=== PATIENT | female | born 1985 | race Caucasian/White ===

== ENCOUNTER 2018-10-10 03:40 | Inpatient (IN) | payer BC ==
[2018-10-10] MEDS ORDERED: Lactated Ringers 1000 ML Bag* 1,000 ML IV ONE ×2 (04:23→17:39)
--- NOTE | 2018-10-10 04:47 | HP ---
General Information - Reason for Visit Pt presents at 38-1/7 in early active labor, GBS + - General Information Maternal Age: 33 Grav: 2 Para: 1 SAB: 0 IEA: 0 Estimated Due Date: 10/23/18 Determined By: Date of Conception Gestational Age in Weeks/Days: 38-7 Maternal Blood Type and Rh: O Positive - Results this Serology/RPR Result: Non-Reactive Rubella Result: Immune HBsAg Result: Negative HIV Result: Negative GBS Culture Result: Positive Past Medical History Delivery History: Hx Complicated Vaginal Delivery - 20 second shoulder dystocia with delivery 8lb 1oz son Delivery History Comment: 10/08/2016 8lbs 1oz boy at [facility] [place] by Dominick Hale CNM As above delivery complicated by 20second shoulder dystocia. without any complications s/p delivery Pertinent Past Medical History: See Records Past Medical History Comment: Hx ulcers in the past Hx migraine Psoriasis Pertinent Past Surgical History: None Pertinent Family History: See Records Family History Comment: Mother: Aortic valve, arch replacement Sister: Single kidney, double uterus, DM Type I PGM: . Alzheimers PGF: Hx lymphoma. old age MGM: lung cancer MGF: Hx MS. old age - Antepartal Records Antepartal Records: Reviewed, Complicated by: - Hyperemesis gravidum first/second trimester. Well managed with antinausea medication. GBS +. PCN and Cephalosporin allergic. C&S done. Clinda resistant. Plan vanco Review of Systems Constitutional: Comfortable CV Complaint: No Respiratory: Shortness of Breath: No Gastrointestinal: No Nausea/Vomiting, Normal Bowel Movement Genitourinary: No Dysuria, No Bleeding, No Leaking Fluid Musculoskeletal: Contractions Neurological: No Headache, No Visual Changes Movement: Normal Exam Allergies/Adverse Reactions: Allergies Sulfa (Sulfonamide Antibiotics) Allergy (Severe, Verified 10/10/18 04:35) Hives amoxicillin Allergy (Verified 10/10/18 04:35) Rash Cephalosporins Allergy (Verified 10/10/18 04:35) See Comment psoriasis exacerbation Penicillins Allergy (Verified 10/10/18 04:35) Rash shellfish derived Allergy (Verified 10/10/18 04:35) GI Upset Vital Signs 10/10/18 04:38 Temperature 97.8 F Pulse Rate 96 Respiratory 18 Rate Blood Pressure 128/72 (mmHg) O2 Sat by Pulse 99 Oximetry - Measurements Height: 5 ft 6.5 in Weight: 228 lb Weight in lbs: 228.807284 Body Mass Index (BMI): 36.2 Pre- Weight: 183 lb Weight Gained This : 45 lbs and 0 ozs - Exam Breast: Breast Exam Deferred CVA: No CVA Tenderness Extremities: No Edema Heart: Normal Rhythm/Heart Sounds HEENT: No Significant Findings Lungs: Clear Bilaterally Rectal: Rectal Exam Deferred Reflexes: DTR 2+ Thyroid: No Thyromegaly - Abdominal Exam Abdomen Exam: Non-Tender, Fundal Height Consistent with Dates Targeted Exam Findings Estimated Weight: EFW by sono 09/29/2018 7lbs 8oz. By Glenna cruz 8- 8.5lbs Cervical Exam: 3cm, 4cm Effacement: 80% Station: -2 Presenting Part: Vertex - per RN Membrane Status: Intact Sterile Speculum Exam: Not done Bleeding/Discharge: None EFM Findings - External Monitor Findings Baseline Heart Rate: 145 External Monitor Findings: Accelerations Present, No Pattern of Variable or Late Decelerations, Variability Moderate, Baseline Stable External Monitor Findings Comment: No evidence of metabolic acidemia Contractions: Regular, Mild Contraction Frequency: q 3-5 Assessment/Plan - Assessment IUP at 38-1/7 in early active labor - Obstetrical Risk Factors Obstetrical Risk Factors: GBS Positive Risk Factors Comment: Hx of previous shoulder dystocia. Lengthy review of options given current EFW matches previous child including elective pLTCS and risk of possible repeat shoulder and associated risks (brachial plexus injury to with life long repercussions, broken bones, traumatic delivery for mom and infant, infant ). All questions answered. At this time pt and FOB accept potential risks associated with a repeat shoulder. If labor progress is as expected prefer to attempt a vaginal . If labor progress lags would like option to revisit pLTCS. - Plan Plan: Observe Plan Comment: P: Admit. Begin GBS prophylaxis. Plan MD in house for delivery given obstetrical history. - Date/Time of Admission Date of Admission: 10/10/18 Time of Admission: 04:20
[2018-10-10 04:52] LABS: ABS Basophils 0.1 10^3/ul (0-0.2); ABS Eosinophils 0.1 10^3/ul (0-0.6); ABS Lymphocytes 2.4 10^3/ul (1.0-4.8); ABS Monocytes 0.9 10^3/ul (0-0.8); ABS Neutrophils 10.8 10^3/ul (1.5-7.7); ABS Nucleated RBC 0 10^3/ul; Eosinophil % 0.5 %; Hematocrit 32 % (35-47); Hemoglobin 10.5 g/dl (12.0-16.0); Lymphocyte % 16.8 %; Mean Corpuscular HGB Conc 33 g/dl (31-36); Mean Corpuscular Hemoglobin 28 pg (27-31); Mean Corpuscular Volume 83 fL (80-97); Mean Platelet Volume 8.6 fL (7.4-10.4); Nucleated Red Blood Cells % 0.1; Platelet Count 212 10^3/ul (150-450); Red Blood Count 3.82 10^6/ul (4.00-5.40); Red Cell Distribution Width 14 % (10.5-15); White Blood Count 14.2 10^3/ul (3.5-10.8)
[2018-10-10] MEDS: Vancomycin(*) 1,000 MG in NS 0.9% 250 ML* 250 ML IVPB SCH ×2 (05:23→18:00)
--- NOTE | 2018-10-10 07:28 | PN ---
Progress Note - Progress Note Date of Service: 10/10/18 Note: S: Pt breathing through UCs although reports spacing about the same. O: BP 118/82 HR 110 T 99.2 RR 20 FHT: 140bpm. Moderate variability. +Accels. No decels. UCs q 2-4, mild-moderate VE: 4cm/70%/vtx -2, BBOW. Membranes swept A: IUP at 38-1/7 in early active labor No evidence of metabolic acidemia GBS+ P: Will continue to monitor. 1st dose of vancomycin completed. Report to Katie Ramirez CNM who will assume care at 0800
--- NOTE | 2018-10-10 09:38 | PN ---
Progress Note - Progress Note Date of Service: 10/10/18 SOAP: Subjective: [Patient coping well with contractions, ambulating and using yoga ball to try to get labor going. Would like to consider amniotomy as this helped get her previous labor moving. Feels contractions are somewhat stronger.] Objective: [VE 4cm/80%/-2 VSS, afebrile FHT 140 last doppler UCs approx Q 3-4 min] Assessment: [Early labor No evidence acidemia] Plan: [PARQ discussion of amniotomy, patients are in agreement. Fluid clear. Anticipate SVB. MD will be in-house due to hx of shoulder dystocia.]
--- NOTE | 2018-10-10 14:23 | PN ---
Progress Note - Progress Note Date of Service: 10/10/18 Note: S: Patient reports walking in hallways, on yoga ball, went in tub, had a short rest. Contractions initially stronger after amniotomy but now have spaced out. Would like to consider pitocin which she had with previous labor. O: VE deferred FHT 155 Ctx approx Q 2-5 Vss, afebrile A: Term in early/prodromal labor No evidence metabolic acidemia P: PARQ disc low-dose pitocin. Patients in agreement and would like to initiate. Monitor per protocol
[2018-10-10] MEDS ORDERED: Oxytocin in LR* 20 UNITS/1,000 ML BAG IVPB SCH ×2 (15:00→22:00)
--- NOTE | 2018-10-10 16:37 | PN ---
Progress Note - Progress Note Date of Service: 10/10/18 Note: S: Patient reports increasing strength of contractions, feeling them more in her back. Still leaking fluid. Small amount of bloody show. Was in tub with good relief. O: VE /-1 Pit @ 6 UCs q 2-5 min FHT 150 Cat 1 VSS, afebrile A: IUP in labor No evidence acidemia P: Continue to monitor contractions and titrate pitocin accordingly. Anticipate SVB
[2018-10-10] MEDS ORDERED: OBEPIDURAL* 250 ML EPIDURAL ONE (16:50)
[2018-10-10] MEDS ORDERED: fentaNYL* 50 MCG/ML 2 ML VIAL (100 MCG VIAL) ONE (17:01)
[2018-10-10] MEDS ORDERED: Sodium Citrate/Citric Acid* 15 ML UDC PO PRN (17:39)
[2018-10-10] MEDS ORDERED: Famotidine TAB* 20 MG PO PRN (17:39)
[2018-10-10] MEDS ORDERED: Phenylephrine IV* 40 MCG/ML 10 ML SYRINGE IV PUSH PRN ×2 (17:39)
[2018-10-10] MEDS ORDERED: Lactated Ringers 1000 ML Bag* 1,000 ML IV SCH ×2 (18:00→22:00)
[2018-10-10] MEDS ORDERED: OBEPIDURAL* 250 ML EPIDURAL SCH (18:00)
--- NOTE | 2018-10-10 19:14 | PN ---
Progress Note - Progress Note Date of Service: 10/10/18 Note: S: Patient has been very comfortable with epidural. Can feel ctx but not painful. Feeling more sensation/pressure in vaginal and rectal area. O: VE 8cm/90/-1 FHT 145 UCs q 2-5 min Pit @ 4 VSS, afebrile A: IUP in active labor No evidence acidemia P: Continue position changes, use peanut ball. Anticipate SVB
--- NOTE | 2018-10-10 21:26 | PN ---
Progress Note - Progress Note Date of Service: 10/10/18 Note: S: Patient feeling contractions more strongly despite epidural, but coping ok and using bolus button. O: VE 9cm/100/-1 Pit @ 8 UCs q 2-3 FHT 145 A: Possible malposition, OP? Active labor No signs acidemia P: continue use of peanut ball and position changes
[2018-10-10] MEDS ORDERED: Witch Hazel PAD* JAR TOPICAL PRN (21:59)
[2018-10-10] MEDS ORDERED: Glycerin ADULT SUPP PR PRN (21:59)
[2018-10-10] MEDS ORDERED: Dibucaine 1% 28.35 GM TUBE PR PRN (21:59)
--- NOTE | 2018-10-10 23:09 | PROCNOTE ---
[facility] OB: Delivery Note - Delivery A Date of : 10/10/18 Time of : 21:48 [place] Sex: Male Score 1 Minute: 9 Score 5 Minutes: 9 Gestational Age in Weeks and Days at Delivery: 38 Weeks and 1 Days Delivery Method: Spontaneous Vaginal Labor: Spontaneous Amniotic Fluid: Clear Estimated Blood Loss: 300 Anesthesia/Analgesia: CEI for Labor Delivered By: Gracy Ramirez - Nursery Level of Nursery: Regular/Bedside - Perineum Perineal Injury: 2nd Degree Perineal Repair: By Delivering Practioner - Events Delivery Events of Note: Pitocin During Labor, Full Course of Antibiotics - Additional Delivery Notes Additional Delivery Notes: Patient admitted in early labor. Amniotomy and pitocin lead slowly to active labor with steady progression to complete. Position changes to adjust position lead to sudden urge to push. LOL 20'57", pushed 9 min. Baby born OA to SADIE, shoulders following with strong maternal efforts. Baby placed on lower maternal abdomen due to short, thick cord. Spontaneous cry, HR>110. Cord doubly clamped and cut by FOB once pulsations ceased at approx 5 min. Placenta delivered Trung @ 2149 with gentle cord traction. Noted to have intact- appearing membrane, 3VC, slightly short cord. Fundus firm to massage and with pitocin infusing. Baby at breast to initiate and both stable. Baby name [email or web address].
[2018-10-11] MEDS: Ibuprofen TAB* 600 MG PO PRN ×4 (00:58→20:40)
[2018-10-11 06:41] LABS: ABS Basophils 0.1 10^3/ul (0-0.2); ABS Eosinophils 0.1 10^3/ul (0-0.6); ABS Lymphocytes 1.9 10^3/ul (1.0-4.8); ABS Monocytes 1.2 10^3/ul (0-0.8); ABS Nucleated RBC 0 10^3/ul; Eosinophil % 0.3 %; Hematocrit 28 % (35-47); Hemoglobin 9.2 g/dl (12.0-16.0); Mean Corpuscular HGB Conc 33 g/dl (31-36); Mean Corpuscular Hemoglobin 27 pg (27-31); Mean Corpuscular Volume 84 fL (80-97); Mean Platelet Volume 8.4 fL (7.4-10.4); Nucleated Red Blood Cells % 0; Platelet Count 196 10^3/ul (150-450); Red Blood Count 3.39 10^6/ul (4.00-5.40); Red Cell Distribution Width 14 % (10.5-15); White Blood Count 19.3 10^3/ul (3.5-10.8)
[2018-10-11] MEDS ORDERED: Simethicone TAB* 80 MG TAB.CHEW PO SCH (08:30)
[2018-10-11] MEDS ORDERED: Ferrous Gluconate TAB* 324 MG TAB PO SCH (09:00)
[2018-10-11] MEDS: Docusate CAP* 100 MG PO SCH ×2 (15:20→20:40)
[2018-10-11] MEDS ORDERED: Ferrous Gluconate TAB* 324 MG TAB ONE (21:26)
[2018-10-11] MEDS: Ferrous Gluconate TAB* 324 MG TAB PO SCH (21:28)
[2018-10-12] MEDS: Ibuprofen TAB* 600 MG PO PRN ×2 (02:50→09:34)
[2018-10-12] MEDS: Acetaminophen TAB* 325 MG PO PRN ×3 (02:51→09:46)
[2018-10-12 07:47] VITALS: BP 124/67
[2018-10-12] MEDS: Ferrous Gluconate TAB* 324 MG TAB PO SCH ×2 (09:05→12:25)
[2018-10-13] MEDS: Docusate CAP* 100 MG PO SCH (07:08)
== END 2018-10-12 17:33 | disposition home or self-care (01) | DRG 560 ==
LOC: MCHOBOUT 03:40 → MCHOB 04:21
PROVIDERS: ADMIT Midwife; ATTEND Midwife
PROC: 0KQM0ZZ Repair Perineum Muscle, Open Approach (ICD-10-PCS; principal; 2018-10-10)
PROC: 4A1HXCZ Monitoring of Products of Conception, Cardiac Rate, External Approach (ICD-10-PCS; 2018-10-10)
PROC: 10E0XZZ Delivery of Products of Conception, External Approach (ICD-10-PCS; 2018-10-10)
PROC: 10907ZC Drainage of Amniotic Fluid, Therapeutic from Products of Conception, Via Natural or Artificial Opening (ICD-10-PCS; 2018-10-10)
DX: O69.3XX0 Labor and delivery complicated by short cord, not applicable or unspecified (principal); Z37.0 Single live birth; O99.824 Streptococcus B carrier state complicating childbirth; O70.1 Second degree perineal laceration during delivery; Z3A.38 38 weeks gestation of pregnancy; Z88.0 Allergy status to penicillin; Z88.2 Allergy status to sulfonamides; Z88.1 Allergy status to other antibiotic agents; Z91.013 Allergy to seafood
CPT/HCPCS: 36415; 85025; 86850; 86900; 86901; A9270-GY; J3010; J3370